=== PATIENT | female | born 1945 | race Two or more races ===

== ENCOUNTER 2018-08-21 20:24 | Emergency (ER) | payer OTHER ==
[~2018-08-21] VITALS: Ht 160 cm; Wt 81.6 kg
[~2018-08-21 20:24] MED LIST: CIPRO500 MG PO; ENALAPRIL MALEA10 MG NGT; GLUMETZA1000 MG; METOPROLOL SUCC50 MG PO; PLAVIX75 MG PO; PROTONIX40 MG PO; PYRIDIUM200 MG PO; TRAMADOL HCL-AP1 TAB PO; ZANTAC300 MG PO; ZOFRAN4 MG PO
[2018-08-21] MEDS ORDERED: NEURONTIN600 MG (20:47)
[2018-08-21] MEDS ORDERED: HYDROCHLOROTH12.5 M1 (20:48)
[2018-08-21] MEDS ORDERED: KAPSPARGO SPRIN25 MG (20:49)
[2018-08-21] MEDS ORDERED: BANOPHEN50 MG (20:49)
[2018-08-21] MEDS ORDERED: NORVASC5 MG (20:50)
[2018-08-21] MEDS ORDERED: TYLENOL EXTRA500 MG (20:50)
[2018-08-21] MEDS ORDERED: DICLOFENAC POTA50 MG (20:50)
== END 2018-08-21 23:00 | disposition home or self-care (01) ==
LOC: ER 20:24
DX: K29.60 Other gastritis without bleeding (principal)